=== PATIENT | male | born 1970 ===

== ENCOUNTER 2017-08-20 11:47 | Emergency (ER) | payer BC ==
[2017-08-20 12:09] VITALS: BP 116/64
--- NOTE | 2017-08-20 12:45 | UC ---
Rectal Pain HPI - HPI Summary HPI Summary: hemorrhoid x 7-10 days no bleeding no constipation minimal discomfort has had a "skin tag" 6 0clock rectum that has been there for yrs and has not changed was noted when he had colonoscopy - History Of Current Complaint Chief Complaint: UCGeneralIllness Stated Complaint: MALE PERSONAL Hx Obtained From: Patient Onset/Duration: Gradual Onset, Lasting Days Timing: Constant Severity Initially: Mild Severity Currently: Mild Pain Intensity: 2 Pain Scale Used: 0-10 Numeric Location Of Pain: Rectal Character: Dull Aggravating Factor(s): Sitting Alleviating Factor(s): Nothing Associated Signs And Symptoms: Positive: External Hemorrhoid - Allergies/Home Medications Allergies/Adverse Reactions: Allergies Allergy/AdvReac Type Severity Reaction Status Date / Time No Known Allergies Allergy Verified 08/20/17 12:09 Home Medications: Home Medications Aspirin [Won Aspirin Regimen] 325 mg PO DAILY 08/20/17 [History Confirmed ] Atorvastatin* [Lipitor 40 MG*] 40 mg PO EVERY OTHER DAY 08/20/17 [History Confirmed 08/20/17] Lisinopril [Lisinopril 2.5 MG-] 5 mg PO DAILY 08/20/17 [History Confirmed ] Metoprolol Succinate [Toprol Xl] 25 mg PO BID 08/20/17 [History Confirmed ] PMH/Surg Hx/FS Hx/Imm Hx Previously Healthy: No Endocrine History: Dyslipidemia Cardiovascular History: Cardiac Disease, Hypertension - Surgical History Surgical History: Yes Surgery Procedure, Year, and Place: LEFT BICEP TENDON REPAIR 2 stents, sleep surgery. - Family History Known Family History: Positive: Cardiac Disease, Hypertension, Diabetes - Social History Alcohol Use: Occasionally Substance Use Type: None Smoking Status (MU): Never Smoked Tobacco Review of Systems Constitutional: Negative Skin: Negative Eyes: Negative ENT: Negative Respiratory: Negative Cardiovascular: Negative Gastrointestinal: Negative Genitourinary: Negative Motor: Negative Neurovascular: Negative Musculoskeletal: Negative Neurological: Negative Psychological: Negative Is Patient Immunocompromised?: No All Other Systems Reviewed And Are Negative: Yes Physical Exam Triage Information Reviewed: Yes Appearance: Well-Appearing, No Pain Distress, Well-Nourished Vital Signs: Initial Vital Signs Temp 97.7 F 08/20/17 12:05 Pulse 62 08/20/17 12:05 Resp 16 08/20/17 12:05 BP 116/64 08/20/17 12:05 Pulse Ox 100 08/20/17 12:05 Eyes: Positive: Conjunctiva Clear ENT: Positive: Normal ENT inspection Neck exam: Normal Neck: Positive: Supple Respiratory: Positive: Lungs clear, Normal breath sounds, No respiratory distress Cardiovascular: Positive: RRR, No Murmur Abdomen Description: Positive: Nontender, No Organomegaly, Soft, Other: - small hemorrhoid at 12 oclock/not thrombosed. Negative: CVA Tenderness (R), CVA Tenderness (L) Musculoskeletal: Positive: ROM Intact, No Edema Neurological: Positive: Alert Psychological Exam: Normal Skin Exam: Normal Rectal Pain Course/Dx - Differential Dx/Diagnosis Provider Diagnoses: external hemorrhoid Discharge - Discharge Plan Condition: Stable Disposition: HOME Patient Education Materials: Hemorrhoids (ED) Referrals: Francesco BURNS,Sam Brambila [Primary Care Provider] - Additional Instructions: I suggest anusol HC (OTC) recent for new or worsening symptoms I suggest you contact you gi MD if not better in a couple of weeks
== END 2017-08-20 13:01 | disposition home or self-care (01) ==
LOC: UCEAST 11:47
DX: K64.4 Residual hemorrhoidal skin tags (principal); E78.5 Hyperlipidemia, unspecified
CPT/HCPCS: 99201; G0463